=== PATIENT | female | born 1980 | race Two or more races ===

== ENCOUNTER 2019-12-01 12:35 | Emergency (ER) | payer MEDICAID ==
[~2019-12-01] VITALS: Ht 165.1 cm; Wt 81.0 kg
[2019-12-01 12:49] VITALS: BP 109/81
== END 2019-12-01 14:05 | disposition home or self-care (01) ==
LOC: ER 12:35
DX: F07.81 Postconcussional syndrome (principal)
CPT/HCPCS: 99282